=== PATIENT | male | born 1990 | race Hispanic/Latino ===

== ENCOUNTER 2020-08-16 22:45 | Emergency (ER) | payer BC, OTHER ==
[2020-08-16] MEDS ORDERED: Acetaminophen/HYDROcodone 325-5 MG Tab PO ONE (22:46)
[2020-08-16] MEDS ORDERED: Ibuprofen 800 MG Tab PO ONE (23:17)
[2020-08-17] MEDS ORDERED: Acetaminophen/HYDROcodone 325-10 MG Tab PO ONE (00:12)
[2020-08-17] MEDS ORDERED: Penicillin V Potassium 250 MG Tab PO ONE (00:14)
[2020-08-17] MEDS ORDERED: Lidocaine 2% Viscous Solution 15 ML Cup PO ONE (00:14)
--- NOTE | 2020-08-17 00:17 | EDM.PDOC ---
ED HPI GENERAL MEDICAL PROBLEM - General Chief Complaint: ENT Problem Stated Complaint: LEFT SIDE JAW PAIN GOING INTO EAR CANT SWALLOW Time Seen by Provider: 08/16/20 23:45 Source of Information: Reports: Patient, RN, RN Notes Reviewed History Limitations: Reports: No Limitations - History of Present Illness INITIAL COMMENTS - FREE TEXT/NARRATIVE: Patient is a 29-year-old male who presents to ER with complaint of left lower molar tooth pain that began approximately 4 weeks ago. He states he has seen the dentist and is to have the tooth removed. On Sunday he began having jaw pain that travels up into the ear. He did call his dentist on Sunday, August 16 who prescribed him clindamycin. Patient is to see the dentist on Sunday to have the tooth pulled. He states he was on amoxicillin 3 weeks ago which she states did not help at that time. He rates the pain a 10/10, has been using Tylenol ibuprofen, as well as Anbesol. Patient does report chills from time to time, unsure if he had a fever. Onset: Gradual left lower back molar. pain radiating into his ear Pain Score (Numeric/FACES): 10 - Related Data Allergies Allergy/AdvReac Type Severity Reaction Status Date / Time No Known Allergies Allergy Verified 08/16/20 23:04 Home Meds: Home Meds Clindamycin HCl 300 mg PO QID 08/16/20 [History] Past Medical History - Past Health History Medical/Surgical History: Denies Medical/Surgical History - Infectious Disease History Infectious Disease History: Reports: TB Social & Family History - Family History Family Medical History: No Pertinent Family History - Tobacco Use Years of Tobacco use: 10 Packs/Tins Daily: 0.2 - Recreational Drug Use Recreational Drug Use: No ED ROS GENERAL - Review of Systems Review Of Systems: Comprehensive ROS is negative, except as noted in HPI. ED EXAM, GENERAL - Physical Exam Exam: See Below Exam Limited By: No Limitations General Appearance: Alert, WD/WN, Mild Distress Eye Exam: Bilateral Eye: EOMI, Normal Inspection Ears: Normal External Exam, Normal Canal, Hearing Grossly Normal Ear Exam: Bilateral Ear: TM Dull Nose: Normal Inspection Throat/Mouth: Normal Inspection, Normal Voice, No Airway Compromise, Other (Unable to visualize throat, as patient is unable to open mouth wide enough) Head: Atraumatic, Normocephalic Neck: Normal Inspection, Supple, Non-Tender, Full Range of Motion, Lymphadenopathy (L) (Submental lymph node +2-3) Respiratory/Chest: No Respiratory Distress, Lungs Clear, Normal Breath Sounds, No Accessory Muscle Use, Chest Non-Tender Cardiovascular: Normal Peripheral Pulses, Regular Rate, Rhythm, No Edema, No Gallop, No JVD, No Murmur, No Rub Peripheral Pulses: 2+: Radial (L), Radial (R) GI/Abdominal: Normal Bowel Sounds, Soft, Non-Tender (Male) Exam: Deferred Rectal (Males) Exam: Deferred Back Exam: Normal Inspection, Full Range of Motion, NT Extremities: Normal Inspection, Normal Range of Motion, Non-Tender, Normal Capillary Refill, No Pedal Edema Neurological: Alert, Oriented, CN II-XII Intact, Normal Cognition, Normal Gait, Normal Reflexes, No Motor/Sensory Deficits Psychiatric: Normal Affect, Normal Mood Skin Exam: Warm, Dry, Intact, Normal Color, No Rash Lymphatic: No Adenopathy Course - Vital Signs Last Recorded V/S: Last Vital Signs Temp 96.7 F L 08/16/20 22:57 Pulse 107 H 08/16/20 22:57 Resp 16 08/16/20 22:57 BP 129/96 H 08/16/20 22:57 Pulse Ox 99 08/16/20 22:57 - Orders/Labs/Meds Meds: Medications Discontinued Medications Generic Name Dose Route Start Last Admin Trade Name Dominikq PRN Reason Stop Dose Admin Hydrocodone Bitart/Acetaminophen 1 tab 08/17/20 00:12 Lowell 325-10 Mg PO 08/17/20 00:13 ONETIME ONE Ibuprofen 800 mg 08/16/20 23:17 08/16/20 23:21 Motrin PO 08/16/20 23:18 800 mg ONETIME ONE Administration Lidocaine HCl 15 ml 08/17/20 00:14 Xylocaine 2% Viscous PO 08/17/20 00:15 ONETIME ONE Penicillin V Potassium 500 mg 08/17/20 00:14 Veetids PO 08/17/20 00:15 ONETIME ONE Departure - Departure Time of Disposition: 00:36 Disposition: Home, Self-Care 01 Condition: Fair Clinical Impression: Dental abscess - Discharge Information *PRESCRIPTION DRUG MONITORING PROGRAM REVIEWED*: No *COPY OF PRESCRIPTION DRUG MONITORING REPORT IN PATIENT SARAH: No Instructions: Dental Abscess, [id number] Forms: ED Department Discharge Additional Instructions: RX: take Penicillin VK with the Clindamycin Take a Probiotic with the antibiotics to prevent diarrhea May use Viscous Lidocaine, swish and spit 4 times daily for pain RX: Lowell for pain every 4-6 hours Follow up with your dentist May also use Tylenol and/or Ibuprofen as directed for pain Sepsis Event Note (ED) - Evaluation Sepsis Screening Result: No Definite Risk - Focused Exam Vital Signs: Vital Signs Temp Pulse Resp BP Pulse Ox 08/16/20 22:57 96.7 F L 107 H 16 129/96 H 99
[2020-08-17] MEDS ORDERED: Acetaminophen/HYDROcodone 325-5 MG Tab ONE (00:44)
== END 2020-08-17 00:53 | disposition home or self-care (01) ==
LOC: DL.ED 22:45
DX: K04.7 Periapical abscess without sinus (principal); Z72.0 Tobacco use
CPT/HCPCS: 99282; 99283; A9270-GY

== ENCOUNTER 2020-11-29 07:51 | Emergency (ER) | payer OTHER ==
--- NOTE | 2020-11-29 07:53 | EDM.PDOC ---
ED HPI GENERAL MEDICAL PROBLEM - General Chief Complaint: Back Pain or Injury Stated Complaint: IN BY AMBULANCE Time Seen by Provider: 11/29/20 07:53 Source of Information: Reports: Patient, EMS, Old Records, RN, RN Notes Reviewed History Limitations: Reports: No Limitations - History of Present Illness INITIAL COMMENTS - FREE TEXT/NARRATIVE: patient was at work reaching for a ladder when his back "went out" and he couldn't stand due to pain. EMS brought the patient in. Denies numbess or tingling down legs. reports the pain on the spine at belt level. Moves all extremities. color wnl. No open wounds. cap refill less than 2. Skin warm and dry. No LOC during event Onset: Today, Sudden Duration: Constant Location: Reports: Back Quality: Reports: Ache, Other (Spasm) Severity: Severe Improves with: Reports: Immobilization Worsens with: Reports: Movement Context: Denies: Trauma Associated Symptoms: Reports: No Other Symptoms Back Pain Score (Numeric/FACES): 10 - Related Data Allergies Allergy/AdvReac Type Severity Reaction Status Date / Time No Known Allergies Allergy Verified 08/16/20 23:04 Home Meds: Home Meds Clindamycin HCl 300 mg PO QID 08/16/20 [History] Past Medical History - Past Health History Medical/Surgical History: Denies Medical/Surgical History - Infectious Disease History Infectious Disease History: Reports: TB Social & Family History - Family History Family Medical History: No Pertinent Family History - Living Situation & Occupation Occupation: Employed ED ROS GENERAL - Review of Systems Review Of Systems: Comprehensive ROS is negative, except as noted in HPI. ED EXAM,LOWER BACK PAIN/INJURY - Physical Exam Exam: See Below Exam Limited By: No Limitations General Appearance: Alert, WD/WN, Mild Distress (Due to pain) Eye Exam: Bilateral Eye: Normal Inspection Nose: Normal Inspection Throat/Mouth: Normal Voice, No Airway Compromise Head: Atraumatic, Normocephalic Neck: Normal Inspection, Supple, Non-Tender, Full Range of Motion Respiratory/Chest: No Respiratory Distress, Lungs Clear, Normal Breath Sounds, No Accessory Muscle Use, Chest Non-Tender Cardiovascular: Regular Rate, Rhythm, No Edema, Tachycardia GI/Abdominal: Normal Bowel Sounds, Soft, Non-Tender, No Organomegaly, No Distention, No Abnormal Bruit, No Mass (Male) Exam: Deferred Rectal (Males) Exam: Deferred Back Exam: Decreased Range of Motion, Muscle Spasm (Severe, thoracolumbar), Paraspinal Tenderness (Lumbar), Vertebral Tenderness (Lumbar). No: CVA Tenderness (L), CVA Tenderness (R) Extremities: Normal Inspection, Non-Tender, No Pedal Edema, Normal Capillary Refill Neurological: Alert, Normal Mood/Affect, Normal Dorsiflexion, CN II-XII Intact, Normal Plantar Flexion, No Motor/Sensory Deficits, Oriented x 3 Psychiatric: Normal Affect, Normal Mood Skin Exam: Warm, Dry, Intact, Normal Color, No Rash Course - Vital Signs Last Recorded V/S: Last Vital Signs Temp 98.9 F 11/29/20 08:02 Pulse 107 H 11/29/20 08:02 Resp 16 11/29/20 08:02 BP 153/95 H 11/29/20 08:02 Pulse Ox 96 11/29/20 08:02 - Orders/Labs/Meds Meds: Medications Discontinued Medications Generic Name Dose Route Start Last Admin Trade Name Luli PRN Reason Stop Dose Admin Diazepam 10 mg 11/29/20 07:58 11/29/20 08:13 Diazepam 10 Mg/2 Ml Syringe IM 11/29/20 07:59 10 mg ONETIME ONE Administration Methylprednisolone Sodium Succinate 125 mg 11/29/20 07:59 11/29/20 08:13 Methylprednisolone Sodium Succinate 125 Mg/2 Ml Sdv IM 11/29/20 08:00 125 mg ONETIME ONE Administration - Radiology Interpretation Free Text/Narrative:: [facility] Final Radiology Report Call: [phone] assistance Online chat: [email or web address] Search Name: MECCA KHALIL Age: 30Years M Date: 11/29/2020 SSN: -- : [id number] Study: CT LUMBAR SPINE WO CONT Requesting Physician: BIN SY Images: [id number] Addl Studies: Provided Clinical History: sudden onset severe low back pain Contrast: Without Contrast Medium: Contrast Amount: Contrast Method: Page 1 of 2 PROCEDURE INFORMATION: Exam: CT Lumbar Spine Without Contrast Exam date and time: 11/29/2020 9:08 AM Age: 30 years old Clinical indication: Other: Sudden onset severe low back pain TECHNIQUE: Imaging protocol: Computed tomography images of the lumbar spine without contrast. Radiation optimization: All CT scans at this facility use at least one of these dose optimization techniques: automated exposure control; mA and/or kV adjustment per patient size (includes targeted exams where dose is matched to clinical indication); or iterative reconstruction. COMPARISON: CR SPINE LUMBAR 3 VIEW 09/30/2009 3:44 PM FINDINGS: Vertebrae: No acute fracture. Normal alignment. L1-L2: No significant disc protrusion. No severe spinal canal stenosis. No significant neural foraminal narrowing. L2-L3: No significant disc protrusion. No severe spinal canal stenosis. No significant neural foraminal narrowing. L3-L4: No significant disc protrusion. No severe spinal canal stenosis. No significant neural foraminal narrowing. L4-L5: No significant disc protrusion. No severe spinal canal stenosis. No significant neural foraminal narrowing. L5-S1: No significant disc protrusion. No severe spinal canal stenosis. No significant neural foraminal narrowing. Soft tissues: Unremarkable. IMPRESSION: MECCA KHALIL | Final Radiology Report CONFIDENTIALITY STATEMENT This report is intended only for use by the referring physician, and only in accordance with law. If you received this in error, call [phone]. Page 2 of 2 Normal appearance of the lumbar spine. Thank you for allowing us to participate in the care of your patient. Dictated and Authenticated by: Kwesi Gloria MD 11/29/2020 9:39 AM Central Time ([place] & [place]) Departure - Departure Time of Disposition: 09:54 Disposition: Home, Self-Care 01 Condition: Good Clinical Impression: Lumbar paraspinal muscle spasm - Discharge Information *PRESCRIPTION DRUG MONITORING PROGRAM REVIEWED*: No *COPY OF PRESCRIPTION DRUG MONITORING REPORT IN PATIENT SARAH: No Instructions: Lumbosacral Strain, Muscle Cramps and Spasms Forms: ED Department Discharge Additional Instructions: Rx: Naprosyn 500mg *Take with food. Rx: Hydrocodone APAP 5mg/325mg *Do not drive while taking this medications. Rx: Cyclobenzaprine 10mg *Do not drivel while taking this medication. Follow up in clinic by Sunday. Call [phone] to schedule an ER follow up appointment at [facility]. Sepsis Event Note (ED) - Focused Exam Vital Signs: Vital Signs Temp Pulse Resp BP Pulse Ox 11/29/20 08:02 98.9 F 107 H 16 153/95 H 96
[2020-11-29] MEDS ORDERED: methylPREDNISolone Sodium Succinate 125 MG/2 ML SDV IM ONE (07:59)
--- NOTE | 2020-11-29 09:39 | CT ---
PROCEDURE INFORMATION: Exam: CT Lumbar Spine Without Contrast Exam date and time: 11/29/2020 9:08 AM Age: 30 years old Clinical indication: Other: Sudden onset severe low back pain TECHNIQUE: Imaging protocol: Computed tomography images of the lumbar spine without contrast. Radiation optimization: All CT scans at this facility use at least one of these dose optimization techniques: automated exposure control; mA and/or kV adjustment per patient size (includes targeted exams where dose is matched to clinical indication); or iterative reconstruction. COMPARISON: CR SPINE LUMBAR 3 VIEW 09/30/2009 3:44 PM FINDINGS: Vertebrae: No acute fracture. Normal alignment. L1-L2: No significant disc protrusion. No severe spinal canal stenosis. No significant neural foraminal narrowing. L2-L3: No significant disc protrusion. No severe spinal canal stenosis. No significant neural foraminal narrowing. L3-L4: No significant disc protrusion. No severe spinal canal stenosis. No significant neural foraminal narrowing. L4-L5: No significant disc protrusion. No severe spinal canal stenosis. No significant neural foraminal narrowing. L5-S1: No significant disc protrusion. No severe spinal canal stenosis. No significant neural foraminal narrowing. Soft tissues: Unremarkable. IMPRESSION: Normal appearance of the lumbar spine.
== END 2020-11-29 10:09 | disposition home or self-care (01) ==
LOC: DL.ED 07:51
DX: M62.830 Muscle spasm of back (principal)
CPT/HCPCS: 72131; 96372; 99283; 99284-25; J2930; J3360

== ENCOUNTER 2021-08-09 13:42 | Emergency (ER) | payer OTHER ==
[2021-08-09] MEDS ORDERED: Amoxicillin/Clavulanate K 875-125 MG Tab PO ONE (16:42)
== END 2021-08-09 17:23 | disposition home or self-care (01) ==
LOC: DL.ED 13:42
DX: M79.641 Pain in right hand (principal); Z72.0 Tobacco use
CPT/HCPCS: 73130; 99283; A9270

== ENCOUNTER 2022-07-05 17:05 | Emergency (ER) | payer SELFPAY | END 2022-07-05 20:44 | disposition left against medical advice (07) | LOC: DL.ED 17:05 | DX: Z53.21 Procedure and treatment not carried out due to patient leaving prior to being seen by health care provider (principal) | CPT/HCPCS: 82947 ==

== ENCOUNTER 2024-01-09 11:35 | Emergency (ER) | payer OTHER ==
[2024-01-09] MEDS: Ketorolac 30 MG/ML SDV IM ONE (12:44)
[2024-01-09] MEDS: Acetaminophen 500 MG Tab PO ONE (13:22)
== END 2024-01-09 13:24 | disposition home or self-care (01) ==
LOC: DL.ED 11:35
DX: M79.672 Pain in left foot (principal); E10.9 Type 1 diabetes mellitus without complications; Z79.84 Long term (current) use of oral hypoglycemic drugs; Z79.899 Other long term (current) drug therapy; Z86.16 Personal history of COVID-19
CPT/HCPCS: 73630; 96372; 99283; A9270; J1885